=== PATIENT | female | born 1950 | race Two or more races ===

== ENCOUNTER 2024-05-26 09:48 | Outpatient (AMB) | payer SELFPAY ==
--- NOTE | 2024-05-26 09:59 | ACNOTE_ITS ---
Vital Signs 05/26/24 10:00 Weight 83.574 kg Weight Measurement Method Standing Scale BP 135/80 H Blood Pressure Source Automatic Cuff Blood Pressure Location Left Upper Arm Position Sitting Respiration 16 Pulse 84 Pulse Source Monitor Temp 97.2 F Temp Source Temporal Artery Scan Pulse Oximetry (%) 96 Oxygen Delivery Method Room Air Allergies/Meds Allergies & Medications Allergies No Known Allergies Allergy (Verified 05/26/24 10:00) Medication Reconciliation biperiden 2 mg tablet 2 mg PO BID 10/25/23 [History Confirmed 05/26/24] acetaminophen 650 mg tablet,extended release (Tylenol Arthritis Pain) 650 mg PO Q12H PRN pain #60 tabs 05/26/24 [Rx] carbidopa 25 mg-levodopa 250 mg tablet 1 tab PO QHS 3 months #90 tabs 05/26/24 [Rx] gabapentin 300 mg capsule 300 mg PO BID 3 months #180 caps 05/26/24 [Rx] metformin 500 mg tablet 250 mg (1/2 x 500 mg) PO QDAY 3 months #45 tabs 05/26/24 [Rx] MA Intake Visit Data Collection New Patient or Established: Established Patient (seen at [facility] within 3 years) Seen by Clinical Staff ONLY (RN/MA): No Pain Present Currently: No Pain scale:: 0 Pain Scale Used: Zelaya-Yung/Numerical Armature Varnisher Required: No PCP or OBGYN visit in last 3 months: No Hx Now: No Do You Feel Safe at Home: Yes Authorities Contacted: N/A Smoking Status Smoking Status: Never smoker Immunization / Flu Flu Vaccine in the Last 12 Months: No Flu Vaccine Exclusion Criteria: No Exclusion Criteria Past Medical History Past Medical History NEUROLOGIC: Positive Parkinson's Disease CARDIAC: Positive Hypertension; Negative Congestive Heart Failure RESPIRATORY: Negative Chronic Obstructive Pulmonary Disease (COPD) GENITOURINARY: Negative Renal Disease ENDOCRINE: Positive Diabetes Mellitus Type 2; Negative Diabetes Mellitus Type 1 Social History SMOKING STATUS: Smoking status: Never smoker ALCOHOL: Alcohol Intake: Never HOUSING: Housing: House LIVES WITH: Lives With: Family Patient Portal Questionaires Social History Living Situation History Housing: House Tobacco History Smoking Status: Never smoker Alcohol History Alcohol Intake: Never Domestic Abuse History Do You Feel Safe at Home: Yes Review of Systems Report any current symptoms Only answer those that you have currently: Past Medical History Past Medical History Have you ever been diagnosed with any of the following: Neurological Problems Parkinson's Disease: Yes Cardiology Problems Congestive Heart Failure: No Hypertension: Yes Respiratory Problems Chronic Obstructive Pulmonary Disease (COPD): No Genital/Urinary Problems Renal Disease: No Endocrine Problems Diabetes Mellitus Type 1: No Diabetes Mellitus Type 2: Yes History of Present Illness HPI Narrative 73-year-old female with past medical history of hypertension, diabetes, P arkinson disease, who comes to the [facility] to establish care. Patient is complaining of some mild knee pain. tylenol arthritis ordered. Patient is requesting refills on medications for diabetes and parkinsons. Patient will be sent neurology referall for parkinsons management. Diabetes medications were refilled. Objective/Exam Narrative Physical exam: Physical Exam GENERAL: NAD, AAOx3 HEENT: Moist mucosa. Eyes open, symmetrical, & clear CARDIO: Heart RRR, no obvious murmurs PULM: No noted coughing/dyspnea CTA B/L, no R/W/R GI: Abdomen soft, nondistended, no pain on palpation. BSx4 SKIN/MSK/EXT: No wounds/rashes/edema/amputations, no pain on palpation. Pedal pulses present B/L NEURO: AAOx3, no focal neuro deficits, able to move all 4 extremities Assessment & Plan Diagnosis / Problem List (1) Parkinson disease: Status: Acute Plan: carbidopa/levodopa refilled Neurology referall sent (2) Knee pain: Status: Acute Plan: tylenol arthritis ordered (3) Diabetes: Status: Acute Plan: metformin refilled Orders: Referrals Neurology G20.A1 - Parkinson's disease without dyskinesia, without mention of fluctuations Advanced Care Planning Advance care planning discussed with:: patient Office Procedures [facility] Level of Care Nursing/Assessment Patient Status: Established Patient Nursing Assessment/Reassessment: Medication Reconciliation, Update PMH in EMR and Vital Signs Coordination of Care: Complex Care and Chronic Disease 1-5, Consent,records obtained, informed consent, Education Simp Pt/Fam and Staff clarify orders Established Patient Charge Established Patient Point Assignment: 85 Established Patient Point Charge: Level 3 (80-115)
[2024-05-26 10:00] VITALS: BP 135/80; PULSE 84; RESP 16; TEMP 36.2; O2SAT 96
== END 2024-05-26 11:19 | disposition home or self-care (01) ==
LOC: HODAHC 09:48
PROVIDERS: PCP Student in an Organized Health Care Education/Training Program; Referring Provider Student in an Organized Health Care Education/Training Program; Supervising Provider Internal Medicine; Visit Provider Student in an Organized Health Care Education/Training Program
DX: M25.569 Pain in unspecified knee (principal); E11.9 Type 2 diabetes mellitus without complications; G20.A1 Parkinson's disease without dyskinesia, without mention of fluctuations; Z79.84 Long term (current) use of oral hypoglycemic drugs; I10 Essential (primary) hypertension; Z76.0 Encounter for issue of repeat prescription
CPT/HCPCS: 99213; G0463